=== PATIENT | female | born 1960 | race Caucasian/White ===

== ENCOUNTER → 2017-01-25 | Outpatient (CLI) | payer MEDICARE, OTHER ==
[~2017-01-25] MED LIST: ALPR1T PO; CRS350T PO; DOXE100C4 PO; INSASP10V SQ; INSU100C7 SQ; LVT.1T PO; METO-272 PO; NITRO SPRAY; OMEP20CA12 PO; OXYC-12 PO
--- OUTSIDE RECORDS SUMMARY | 2017-01-25 10:47 | XMS REPORT | Continuity of Care Document ---
Author Author [facility] Organization [facility] Address Unknown Phone Unavailable Care Team Providers Care Event Staff Name Role Phone Haseeb Marinelli III PCP [phone] Source Comments Some departments are not documenting in the electronic medical record. If you do not see the information that you expected, contact Release of Information in the Health Information Management department at [phone] for further assistance in locating additional records.[facility] Active Allergies and Adverse Reactions Allergen Noted Date Severity Reactions Comments Adhesive 03/28/2012 High REDNESS Pt reports adhesive from tele patches causes blisters Allergic to adhesive tapes as well Tegaderm ok to use Polypropylene Membrane 03/09/2012 High RASH Patient reports reaction to Prolene suture utilized with abdominal surgery. Quinolones 03/10/2012 Medium SEE COMMENTS Has interaction with Doxepin for QT prolongation potential Current Medications Prescription Sig. Disp. Refills Start End Date Status Date Insulin Bowen 5 boxes. 5 Each 5 08/04/20 Active (Disposable) 29 x 1/2 " 12 Ndle ondansetron (ZOFRAN) 8 mg Take 1 Tab by mouth every 50 Tab 0 03/14/20 Active tablet 8 hours as needed for 13 Nausea. amLODIPine (NORVASC) 10 Take 1 Tab by mouth 14 Tab 0 03/14/20 Active mg tablet daily. [address] Take 1 Tab by mouth 14 Tab 0 03/14/20 Active (PROTONIX) 40 mg tablet daily. 13 levothyroxine (SYNTHROID) Take 2 Tabs by mouth 14 Tab 0 03/14/20 Active 125 mcg tablet daily. 13 doxepin (SINEQUAN) 100 mg Take 1 Cap by mouth at 14 Cap 0 03/14/20 Active capsule bedtime daily. 13 nitroglycerin Take 1-2 Sprays by mouth 1 Container 0 03/14/20 Active (NITROLINGUAL) 0.4 every 5 minutes as needed 13 mg/dose translingual (CALL MD IF spray ADMINISTERING). BLOOD SUGAR DIAGNOSTIC Use 1 Each as directed Active (CONTOUR TEST STRIPS five times daily. MISC) Lancets Misc Use 1 Each as directed Active five times daily. For Contour meter metoprolol (LOPRESSOR) Take 100 mg by mouth Active 100 mg tablet twice daily. ALPRAZolam (XANAX) 1 mg Take 1 mg by mouth at Active tablet bedtime as needed. acyclovir (ZOVIRAX) 800 Take 800 mg by mouth Active mg tablet twice daily. aspirin 325 mg tablet Take 325 mg by mouth Active twice daily. docusate (COLACE) 100 mg Take 200 mg by mouth Active capsule twice daily. tamsulosin (FLOMAX) 0.4 Take 0.4 mg by mouth Active mg capsule daily. Levetiracetam (KEPPRA) Take 1,500 mg by mouth Active 1,000 mg tab twice daily. ESTRING 2 mg vaginal ring INSERT OR APPLY ONE TO 1 Each 0 03/09/20 Active VAGINAL AREA ONCE FOR ONE 16 DOSE. FOLLOW PACKAGEDIRECTIONS naloxegol (MOVANTIK) 25 Take 1 Tab by mouth daily 30 Tab 2 03/17/20 Active mg tab before breakfast. Take 16 one tablet on an empty stomach, one hour before first meal or 2 hours after a meal citalopram (CELEXA) 20 mg Take 20 mg by mouth Active tablet daily. cyclobenzaprine Take 1 Tab by mouth three 90 Tab 5 08/31/20 Active (FLEXERIL) 10 mg tablet times daily as needed. 16 losartan(+) (COZAAR) 100 Take 100 mg by mouth Active mg tablet daily. fentaNYL (DURAGESIC) 75 Apply 1 Patch to top of 10 Patch 0 03/25/20 04/24/20 Active mcg/hr patch skin as directed every 72 17 17 hours for 30 days Earliest Fill Date: 03/25/17 HYDROmorphone (DILAUDID) Take 1 Tab by mouth every 240 Tab 0 03/25/20 04/24/20 Active 4 mg tablet 4 hours as needed for 17 17 Pain for up to 30 days Earliest Fill Date: 03/25/17 fentaNYL (DURAGESIC) 75 Apply 1 Patch to top of 10 Patch 0 11/29/19 12/29/19 mcg/hr patch skin as directed every 72 17 17 hours for 30 days Earliest Fill Date: 11/29/16 HYDROmorphone (DILAUDID) Take 1 Tab by mouth every 240 Tab 0 12/16/19 01/15/20 4 mg tablet 3 hours as needed for 17 17 Pain for up to 30 days Earliest Fill Date: 12/16/16 fentaNYL (DURAGESIC) 75 Apply 1 Patch to top of 10 Patch 0 01/25/20 01/25/20 Discontin mcg/hr patch skin as directed every 72 17 17 ued hours for 30 days fentaNYL (DURAGESIC) 75 Apply 1 Patch to top of 10 Patch 0 02/24/20 01/25/20 Discontin mcg/hr patch skin as directed every 72 17 17 ued hours for 30 days Earliest Fill Date: 02/23/17 fentaNYL (DURAGESIC) 75 Apply 1 Patch to top of 10 Patch 0 01/25/20 01/25/20 Discontin mcg/hr patch skin as directed every 72 17 17 ued hours for 30 days Earliest Fill Date: 01/24/17 HYDROmorphone (DILAUDID) Take 1 Tab by mouth every 240 Tab 0 01/25/20 01/25/20 Discontin 4 mg tablet 4 hours as needed for 17 17 ued Pain for up to 30 days HYDROmorphone (DILAUDID) Take 1 Tab by mouth every 240 Tab 0 02/24/20 01/25/20 Discontin 4 mg tablet 4 hours as needed for 17 17 ued Pain for up to 30 days Earliest Fill Date: 02/23/17 Active Problems Problem Noted Date Basal cell carcinoma 02/14/2015 Nasal mass 01/07/2015 Back pain 01/01/2015 Seizures (HCC) 01/01/2015 Constipation 08/29/2014 Hypothyroidism 05/01/2013 History of hyperprolactinemia 05/01/2013 Hypoglycemia associated with diabetes ([facility]) 05/01/2013 BONE MARROW FAILURE 03/02/2013 Pancytopenia ([facility]) 03/02/2013 Neutropenia, febrile ([facility]) 03/02/2013 Arteriosclerotic coronary artery disease 12/05/2012 Overview: Cath @ [facility], 01/24/06. 60%narrowing proximal/ostial circumflex, 60% stenosis ostial diagonal, multiple luminal irregularities of the LAD, normal ventriculogram with EF of 60%. 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 Pathology REFUGIO III and AIN III with focal involvement margin at 3:00 position. no invasive disease L ast Assessment & Plan: No evidence recurrence of disease. No suspicious lesions. Vaginal pap done today given multifocal REFUGIO III. Urogenital atrophy present. Recommend annual pelvic exam with skin check. I also recommend evaluation with GI and/or anoscopy given AIN III. For vaginal burning and recurrent UTI may try small amount topical estrogen on vulva BIW H/O: pituitary tumor 12/05/2012 Multiple sclerosis (HCC) 12/04/2012 Overview: MS - Pt was previously on chronic immunosupression therapy for MS and had therapy including ACTH injections and prednisone. - Pt has taken herself off all medications 8 years ago (full treatment with immunomodulation around 8 years). Hyperglycemia 07/31/2012 Rash 04/27/2012 Slurred speech 04/27/2012 Leukocytosis 04/27/2012 DIC (disseminated intravascular coagulation) ([facility]) 04/26/2012 Overview: A. During recent hospitalization for treatment of AML Prolonged Q-T interval on ECG 04/26/2012 Overview: A. Noted during recent admission 03/09/12-04/09/12 Anginal pain ([facility]) 04/26/2012 Overview: A. 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 Day 18 of cycle 3 of chemotherapy - follows with BMT Arm DVT (deep venous thromboembolism), chronic (HCC) 03/09/2012 DVT of upper extremity (deep vein thrombosis) (HCC) 03/09/2012 Bilateral pulmonary embolism (HCC) 03/09/2012 DM II (diabetes mellitus, type II), controlled ([facility]) 03/09/2012 Overview: T2DM since 1991, has been on insulin since 2003 Has insulin pump Resolved Problems Problem Noted Date Resolved Date Pulmonary embolism (HCC) 03/09/2012 12/05/2012 CAD (coronary artery disease) 03/09/2012 12/04/2012 Most Recent Encounters Date Type Specialty Providers Description 01/24/2017 Office Visit Anesthesia Pain Miguel Colbert MD Cancer related pain (Primary Dx); Spondylosis of lumbosacral region without myelopathy or radiculopathy 01/17/[address] Kenya [address] LPN 12/03/2016 Documentation Anesthesia Pain Miguel Colbert MD 11/16/2016 Refill Anesthesia Pain Miguel Colbert MD Immunizations Name Dates Previously Given Next Due Flu Vaccine 08/29/2014 Quadrivalent=>3 Yo (Preservative Free) Social History Tobacco Use Types Packs/Day Years Used Date Current Every Day Smoker Cigarettes 1 25 Smokeless Tobacco: Never Used Tobacco Cessation: Ready to Quit: No; Counseling Given: No Comments: Alcohol Use Drinks/Week oz/Week Comments No 0 Standard 0.0 drinks or equivalent Last Filed Vital Signs Vital Sign Reading Time Taken Blood Pressure 126/86 01/24/2017 10:04 AM [employer] Pulse 94 01/24/2017 10:04 AM [employer] Temperature 36.6 C (97.8 F) 08/31/2016 1:32 PM CDT Respiratory Rate 16 08/31/2016 1:32 PM CDT Height 1.702 m (5' 7") 01/24/2017 10:04 AM [employer] Weight 78.926 kg (174 lb) 01/24/2017 10:04 AM [employer] Body Mass Index 27.25 01/24/2017 10:04 AM [employer] Oxygen Saturation 95% 01/24/2017 10:04 AM [employer] Plan of Care Date Type Specialty Providers Description 02/23/2017 Appointment Anesthesia Pain 03/02/2017 Appointment Anesthesia Pain 04/12/2017 Appointment Anesthesia Pain Sayed, MD Miguel [address] [facility] [address] [place] [address] [phone] (Fax) Health Maintenance Due Date Last Done Comments Hepatitis C Screening 1960 Pertussis Vaccine 1971 Tetanus Vaccine 1977 Microalbumin 1978 Pneumonia Vaccine (Dm) 1978 Colorectal Cancer 2010 Screening Breast Cancer Screening 05/01/2012 05/01/2011 (Previously completed) Physical (Comprehensive) 05/01/2012 05/01/2011 (Previously completed) Exam Hba1c 10/31/2013 05/01/2013, 08/02/2012, 04/27/2012 Additional history exists Dilated Eye Exam 03/31/2014 03/31/2013 (Previously completed) Foot Exam 05/01/2014 05/01/2013 Influenza Vaccine 07/22/2017 08/29/2014 Cervical Cancer Screening 05/07/2018 05/07/2015, 05/01/2011 (Previously completed) Results from Last 3 Months Not on file
== END ==
LOC: FS 10:43
PROVIDERS: ATTEND Internal Medicine Hematology & Oncology
DX: C92.40 Acute promyelocytic leukemia, not having achieved remission (principal); E11.319 Type 2 diabetes mellitus with unspecified diabetic retinopathy without macular edema; E11.40 Type 2 diabetes mellitus with diabetic neuropathy, unspecified; Z85.44 Personal history of malignant neoplasm of other female genital organs; Z85.3 Personal history of malignant neoplasm of breast; Z86.711 Personal history of pulmonary embolism; Z86.718 Personal history of other venous thrombosis and embolism; Z79.4 Long term (current) use of insulin; Z92.21 Personal history of antineoplastic chemotherapy
CPT/HCPCS: 99213

== ENCOUNTER 2018-05-23 14:00 | Outpatient (RCR) | payer MEDICARE, OTHER ==
[2018-03-27 14:08] LABS: BASOPHILS # (AUTO) 0.2 10^3/uL (0.0-0.1); BASOPHILS % (AUTO) 1 % (0-10); EOSINOPHILS # (AUTO) 0.3 10^3/uL (0.0-0.3); EOSINOPHILS % (AUTO) 2 % (0-10); HEMATOCRIT 41 % (35-52); LYMPHOCYTES # (AUTO) 2.6 X 10^3 (1.0-4.0); LYMPHOCYTES % (AUTO) 18 % (12-44); MEAN CORPUSCULAR HEMOGLOBIN 30 PG (25-34); MEAN CORPUSCULAR HGB CONC 34 G/DL (32-36); MEAN CORPUSCULAR VOLUME 87 FL (80-99); MEAN PLATELET VOLUME 9.6 FL (7.4-10.4); MONOCYTES # (AUTO) 0.8 X 10^3 (0.0-1.0); MONOCYTES % (AUTO) 6 % (0-12); NEUTROPHILS # (AUTO) 10.6 X 10^3 (1.8-7.8); NEUTROPHILS % (AUTO) 73 % (42-75); PLATELET COUNT 392 10^3/uL (130-400); RED CELL DISTRIBUTION WIDTH 14.5 % (10.0-14.5); WHITE BLOOD COUNT 14.4 10^3/uL (4.3-11.0)
[2018-03-27 14:28] LABS: ALBUMIN 3.8 GM/DL (3.2-4.5); BILIRUBIN,TOTAL 0.2 MG/DL (0.1-1.0); CALCIUM 9.7 MG/DL (8.5-10.1); CREATININE SERUM 1.17 MG/DL (0.60-1.30); POTASSIUM 4.7 MMOL/L (3.6-5.0); TOTAL PROTEIN 6.2 GM/DL (6.4-8.2)
[2018-05-23 14:24] LABS: BASOPHILS # (AUTO) 0.2 10^3/uL (0.0-0.1); BASOPHILS % (AUTO) 1 % (0-10); EOSINOPHILS # (AUTO) 0.2 10^3/uL (0.0-0.3); EOSINOPHILS % (AUTO) 2 % (0-10); HEMATOCRIT 40 % (35-52); HEMOGLOBIN 13.6 G/DL (11.5-16.0); LYMPHOCYTES # (AUTO) 2.4 X 10^3 (1.0-4.0); LYMPHOCYTES % (AUTO) 15 % (12-44); MEAN CORPUSCULAR HEMOGLOBIN 30 PG (25-34); MEAN CORPUSCULAR HGB CONC 34 G/DL (32-36); MEAN CORPUSCULAR VOLUME 88 FL (80-99); MEAN PLATELET VOLUME 9.5 FL (7.4-10.4); MONOCYTES # (AUTO) 0.9 X 10^3 (0.0-1.0); MONOCYTES % (AUTO) 6 % (0-12); NEUTROPHILS # (AUTO) 12.2 X 10^3 (1.8-7.8); NEUTROPHILS % (AUTO) 77 % (42-75); PLATELET COUNT 539 10^3/uL (130-400); RED BLOOD COUNT 4.53 10^6/uL (4.35-5.85); RED CELL DISTRIBUTION WIDTH 15.1 % (10.0-14.5); WHITE BLOOD COUNT 15.9 10^3/uL (4.3-11.0)
[2018-05-23 14:51] LABS: ALBUMIN 4.1 GM/DL (3.2-4.5); BILIRUBIN,TOTAL 0.2 MG/DL (0.1-1.0); CALCIUM 9.6 MG/DL (8.5-10.1); CREATININE SERUM 1.46 MG/DL (0.60-1.30); POTASSIUM 4.8 MMOL/L (3.6-5.0); TOTAL PROTEIN 6.6 GM/DL (6.4-8.2)
[2018-05-23 16:02] LABS: BAND NEUTROPHILS 1 %; BASOPHILS % (MANUAL) 1 %; EOSINOPHILS % (MANUAL) 1 %; LYMPHOCYTES % (MANUAL) 20 %; MONOCYTES % (MANUAL) 3 %; NEUTROPHILS % (MANUAL) 74 %
[2018-05-23 16:03] LABS: RBC MORPH NORMAL
== END 2018-06-25 | disposition home or self-care (01) ==
LOC: ONC 14:00
PROVIDERS: ATTEND Internal Medicine Hematology & Oncology
DX: C92.40 Acute promyelocytic leukemia, not having achieved remission (principal); E11.319 Type 2 diabetes mellitus with unspecified diabetic retinopathy without macular edema; E11.40 Type 2 diabetes mellitus with diabetic neuropathy, unspecified; Z85.44 Personal history of malignant neoplasm of other female genital organs; Z85.3 Personal history of malignant neoplasm of breast; Z86.711 Personal history of pulmonary embolism; Z86.718 Personal history of other venous thrombosis and embolism; Z79.4 Long term (current) use of insulin; Z92.21 Personal history of antineoplastic chemotherapy
CPT/HCPCS: 36415; 80053; 83615; 85007; 85025; 85027; 88368; 99213

== ENCOUNTER 2018-07-26 14:38 | Outpatient (RCR) | payer MEDICARE, OTHER ==
[2018-07-26 15:09] LABS: ABSOLUTE RETIC # 56 10e9/L (24-90); BASOPHILS # (AUTO) 0.1 10^3/uL (0.0-0.1); BASOPHILS % (AUTO) 1 % (0-10); EOSINOPHILS # (AUTO) 0.1 10^3/uL (0.0-0.3); EOSINOPHILS % (AUTO) 1 % (0-10); HEMATOCRIT 42 % (35-52); HEMOGLOBIN 13.8 G/DL (11.5-16.0); LYMPHOCYTES # (AUTO) 2.2 X 10^3 (1.0-4.0); LYMPHOCYTES % (AUTO) 16 % (12-44); MEAN CORPUSCULAR HEMOGLOBIN 28 PG (25-34); MEAN CORPUSCULAR HGB CONC 33 G/DL (32-36); MEAN CORPUSCULAR VOLUME 86 FL (80-99); MEAN PLATELET VOLUME 9.2 FL (7.4-10.4); MONOCYTES # (AUTO) 0.6 X 10^3 (0.0-1.0); MONOCYTES % (AUTO) 5 % (0-12); NEUTROPHILS # (AUTO) 10.9 X 10^3 (1.8-7.8); NEUTROPHILS % (AUTO) 78 % (42-75); PLATELET COUNT 502 10^3/uL (130-400); RED BLOOD COUNT 4.88 10^6/uL (4.35-5.85); RED CELL DISTRIBUTION WIDTH 14.3 % (10.0-14.5); RETICULOCYTE % 1.15 % (0.50-2.40); WHITE BLOOD COUNT 13.9 10^3/uL (4.3-11.0)
[2018-07-26 15:35] LABS: BAND NEUTROPHILS 0 %; NEUTROPHILS % (MANUAL) 74 %
[2018-07-26 15:36] LABS: BASOPHILS % (MANUAL) 0 %; EOSINOPHILS % (MANUAL) 2 %; LYMPHOCYTES % (MANUAL) 22 %; MONOCYTES % (MANUAL) 2 %; RBC MORPH NORMAL
== END 2018-08-20 | disposition home or self-care (01) ==
LOC: ONC 14:38
PROVIDERS: ATTEND Internal Medicine Hematology & Oncology
DX: C92.40 Acute promyelocytic leukemia, not having achieved remission (principal); E11.319 Type 2 diabetes mellitus with unspecified diabetic retinopathy without macular edema; E11.40 Type 2 diabetes mellitus with diabetic neuropathy, unspecified; R53.83 Other fatigue; M79.601 Pain in right arm; M79.89 Other specified soft tissue disorders; Z85.44 Personal history of malignant neoplasm of other female genital organs; Z85.3 Personal history of malignant neoplasm of breast; Z86.711 Personal history of pulmonary embolism; Z86.718 Personal history of other venous thrombosis and embolism; Z79.4 Long term (current) use of insulin; Z92.21 Personal history of antineoplastic chemotherapy
CPT/HCPCS: 36415; 83615; 85007; 85027; 85045; 99213

== ENCOUNTER → 2018-08-11 | Outpatient (CLI) | payer MEDICARE, OTHER ==
[~2018-08-11] MED LIST changes: +CATHETER FLUSH 10 ML SYR IV PRN; +REGADENOSON 0.4 MG/5 ML SYR (LEXISCAN) IV ONE
[2018-08-11 08:13] VITALS: BP 156/79
[2018-08-11 08:16] VITALS: BP 167/73
--- NOTE | 2018-08-11 10:15 | Diagnostic Imaging Report ---
PA and lateral chest at 9:02. Indication: Dyspnea The heart size is within normal limits and stable when compared to 03/08/2012. The perihilar markings are somewhat prominent but there is no evidence for failure or pneumonia. There is no sign of a pleural effusion either. The mediastinum is not widened. The osseous structures are intact. The orthopedic hardware overlying the lower cervical spine seen previously is partially visualized on this exam. Impression: 1. There is no evidence for acute cardiopulmonary abnormality. 2. The patient does have a history of pulmonary emboli. If further imaging is desired, then CTA of the chest would be recommended. Dictated by: Dictated on workstation # [id number]
--- NOTE | 2018-08-11 15:51 | STRESS TEST ---
DATE OF SERVICE: 08/11/2018 RESTING AND POST REGADENOSON TECHNETIUM-99M TETROFOSMIN SPECT CT IMAGING ORDERING PHYSICIAN: Dr. Marinelli. PRIMARY PHYSICIAN: Dr. Marinelli. CLINICAL DIAGNOSIS: Chest pain. Baseline images were carried out after injection of 10.84 mCi of technetium-99m Tetrofosmin. This was followed by 0.4 mg regadenoson and 30.6 mCi of technetium-99m Tetrofosmin for stress imaging. This part of the study was carried out under Dr. Marinelli's supervision and is reported separately by him. Review of images at rest and following stress does not indicate evidence of any significant myocardial ischemia or infarction. Gated images show normal global left ventricular systolic function, normal regional wall motion. Left ventricular ejection fraction is calculated to be 75%. Left ventricular end diastolic volume is 35 mL. TID is absent (1.14). CONCLUSIONS: 1. No evidence of any significant myocardial ischemia or infarction on this study. 2. Normal regional wall motion. 3. Normal to hyperdynamic left ventricular systolic function with a calculated ejection fraction of 75%. Job ID: [id number] DocumentID: [id number] Dictated Date: 08/11/2018 15:28:00 [employer] Date: 08/11/2018 15:50:44 Dictated By: DARRIUS NAVARRO MD, MA, FACP, FACC,
== END ==
LOC: CARD 06:37
PROVIDERS: ATTEND Internal Medicine
DX: I25.10 Atherosclerotic heart disease of native coronary artery without angina pectoris (principal); R07.9 Chest pain, unspecified; Z86.711 Personal history of pulmonary embolism
CPT/HCPCS: 71046; 78452; 93017

== ENCOUNTER → 2018-09-06 | Outpatient (CLI) | payer MEDICARE, OTHER ==
[~2018-09-06] MED LIST changes: -CATHETER FLUSH 10 ML SYR IV PRN; -REGADENOSON 0.4 MG/5 ML SYR (LEXISCAN) IV ONE
--- NOTE | 2018-09-06 16:01 | Diagnostic Imaging Report ---
INDICATION: Fall. Back pain. COMPARISON: None FINDINGS: Frontal and lateral views of the lumbar spine were obtained. Alignment and vertebral heights are maintained. There is no fracture or destructive process. Calcified aortic atherosclerosis is noted. Limited views of the abdomen demonstrate nonobstructive bowel gas pattern. IMPRESSION: 1. No acute fracture or dislocation of the lumbar spine. Dictated by: Dictated on workstation # [id number]
--- NOTE | 2018-09-06 16:12 | Diagnostic Imaging Report ---
INDICATION: Recent fall. Rib pain. Back pain. COMPARISON: 08/11/2018. FINDINGS: Frontal radiographic view of the chest demonstrates normal cardiac silhouette and pulmonary vasculature. Lung davis show probable minimal atelectasis within the lateral left lung base, but are otherwise clear. There is no large effusion or pneumothorax. Multiple dedicated radiographic views of the bilateral ribs were also obtained. No healing or displaced rib fractures are seen on either side. No other gross acute osseous abnormalities are seen. IMPRESSION: 1. No acute cardiopulmonary process. 2. No healing or displaced rib fractures. Dictated by: Dictated on workstation # [id number]
== END ==
LOC: RAD 11:58
PROVIDERS: ATTEND Internal Medicine
DX: M54.5 Low back pain (principal); R07.81 Pleurodynia; W19.XXXA Unspecified fall, initial encounter
CPT/HCPCS: 71110; 72100

== ENCOUNTER → 2019-01-29 | Outpatient (CLI) | payer MEDICARE, OTHER | LOC: LAB 16:02 | PROVIDERS: ATTEND Psychiatry & Neurology Neurology | DX: Z51.81 Encounter for therapeutic drug level monitoring (principal); Z79.899 Other long term (current) drug therapy | CPT/HCPCS: 36415; 86480 ==

== ENCOUNTER → 2019-02-26 | Outpatient (CLI) | payer MEDICARE, OTHER ==
--- NOTE | 2019-02-26 14:22 | Diagnostic Imaging Report ---
PROCEDURE: CT abdomen with and without contrast. TECHNIQUE: Multiple contiguous axial CT images of the abdomen were obtained prior to and after intravenous administration of iodinated contrast. Auto Exposure Controls were utilized during the CT exam to meet ALARA standards for radiation dose reduction. INDICATION: History of pancreatitis, left upper quadrant pain. COMPARISON: Correlation is limited to overlapped images of the upper abdomen obtained during chest CT on 03/04/2012. FINDINGS: Pancreatic parenchymal enhancement appears homogenous and normal. There is no peripancreatic edema. No pseudocyst or other acute fluid collection. There is mild hepatic steatosis; however, this is perhaps minimally improved when compared to the previous chest CT. The low density and fat-containing benign right adrenal adenoma measures 2.3 x 1.9 cm today, previously measuring 1.6 cm in long axis. The left adrenal is stable and negative. The spleen is normal. There is no bile duct dilatation. The densely calcified aorta is nonaneurysmal. The unobstructed kidneys are normal. There is no ascites, abscess, hematoma, or other fluid collection. There is no evidence for ileus or bowel obstruction. No gastric distention. No focal inflammatory changes. The lung bases are nonacute. IMPRESSION: Fatty infiltration of the liver with increasing size of the benign fat-containing right adrenal adenoma. No inflammatory process, obstructive feature, acute or suspicious abnormality is found. Dictated by: Dictated on workstation # [id number]
--- NOTE | 2019-02-26 21:25 | Diagnostic Imaging Report ---
EXAM: Ultrasound of the right breast INDICATION: Right breast thickening. FINDINGS: The diagnostic mammogram performed earlier today failed to show any sign of malignancy. On this exam, there is no discrete solid or cystic mass in either the 10 o'clock position of the right breast or the 3 o'clock position. It may be that the palpable abnormality in question is related to fibroglandular tissue alone. However, if clinical concern regarding an underlying abnormality is present, then biopsy should still be considered. IMPRESSION: There is no evidence of malignancy. Clinical follow-up is recommended. ACR BI-RADS Category 1: Negative. Result letter will be mailed to the patient. Note: At least 10% of breast cancer is not imaged by mammography. Dictated by: Dictated on workstation # [id number]
--- NOTE | 2019-02-28 11:17 | Diagnostic Imaging Report ---
EXAMINATION: Unilateral diagnostic right mammogram. INDICATION: Right breast lumps Study was compared to prior exam of 08/21/18 and 05/11/2017. At this time the patient complains of palpable abnormality in the 10 o'clock and 4 o'clock positions of the right breast. Markers are placed over the areas of concern. There is no primary or secondary sign of malignancy noted. The fibroglandular tissue in the right breast is heterogeneously dense. This does limit the sensitivity of this exam. Overall, there does not appear to have been any significant change. IMPRESSION: 1. There is no evidence of malignancy. 2. Ultrasound is pending for further study. ACR BI-RADS Category 0: Incomplete. (Needs additional imaging evaluation). Result letter will be mailed to the patient. Note: At least 10% of breast cancer is not imaged by mammography. Dictated by: Dictated on workstation # [id number]
== END ==
LOC: RAD 12:03
PROVIDERS: ATTEND Nurse Practitioner Adult Health
DX: N63.11 Unspecified lump in the right breast, upper outer quadrant (principal); N63.14 Unspecified lump in the right breast, lower inner quadrant; K76.0 Fatty (change of) liver, not elsewhere classified; D35.01 Benign neoplasm of right adrenal gland; Z87.19 Personal history of other diseases of the digestive system
CPT/HCPCS: 74170

== ENCOUNTER 2019-03-05 10:16 | Outpatient (RCR) | payer MEDICARE, OTHER ==
[2019-01-29 16:18] LABS: BASOPHILS # (AUTO) 0.2 10^3/uL (0.0-0.1); BASOPHILS % (AUTO) 1 % (0-10); EOSINOPHILS # (AUTO) 0.2 10^3/uL (0.0-0.3); EOSINOPHILS % (AUTO) 1 % (0-10); HEMATOCRIT 41 % (35-52); HEMOGLOBIN 13.7 G/DL (11.5-16.0); LYMPHOCYTES # (AUTO) 3.4 X 10^3 (1.0-4.0); LYMPHOCYTES % (AUTO) 23 % (12-44); MEAN CORPUSCULAR HEMOGLOBIN 28 PG (25-34); MEAN CORPUSCULAR HGB CONC 33 G/DL (32-36); MEAN CORPUSCULAR VOLUME 83 FL (80-99); MONOCYTES # (AUTO) 0.8 X 10^3 (0.0-1.0); MONOCYTES % (AUTO) 5 % (0-12); NEUTROPHILS # (AUTO) 10.5 X 10^3 (1.8-7.8); NEUTROPHILS % (AUTO) 70 % (42-75); PLATELET COUNT 369 10^3/uL (130-400); RED CELL DISTRIBUTION WIDTH 15.4 % (10.0-14.5)
[2019-01-29 16:47] LABS: ALBUMIN 3.8 GM/DL (3.2-4.5); BILIRUBIN,TOTAL 0.2 MG/DL (0.1-1.0); CALCIUM 9.8 MG/DL (8.5-10.1); CREATININE SERUM 1.25 MG/DL (0.60-1.30); POTASSIUM 4.1 MMOL/L (3.6-5.0); TOTAL PROTEIN 6.3 GM/DL (6.4-8.2)
[~2019-03-05 10:16] MED LIST changes: +NS IV 1000 ML (CANCER CTR) 1,000 ML ONE
== END 2019-04-29 | disposition home or self-care (01) ==
LOC: ONC 10:16
PROVIDERS: ATTEND Internal Medicine Hematology & Oncology
DX: C92.40 Acute promyelocytic leukemia, not having achieved remission (principal); D47.3 Essential (hemorrhagic) thrombocythemia; D72.829 Elevated white blood cell count, unspecified; E11.319 Type 2 diabetes mellitus with unspecified diabetic retinopathy without macular edema; E11.40 Type 2 diabetes mellitus with diabetic neuropathy, unspecified; G35 Multiple sclerosis; Z85.44 Personal history of malignant neoplasm of other female genital organs; Z85.3 Personal history of malignant neoplasm of breast; Z86.711 Personal history of pulmonary embolism; Z86.718 Personal history of other venous thrombosis and embolism; Z79.4 Long term (current) use of insulin; Z92.21 Personal history of antineoplastic chemotherapy
CPT/HCPCS: 36415; 80053; 83036; 83615; 85025; 96360; 96361; 99213